=== PATIENT | female | born 1975 | race Caucasian/White ===

== ENCOUNTER 2018-03-27 09:33 | Inpatient (IN) | payer OTHER ==
--- NOTE | 2018-03-27 12:33 | History and Physical Report ---
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 She denies fever or chills, no abdominal pain no vaginal bleeding and no contractions. 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 denies: smoking - Obstetrical History Expected Date of Delivery: 08/14/18 Actual Gestation: 20 Week(s) 0 Day(s) Review of Systems Constitutional: no fever, no chills Cardiovascular: no chest pain, no orthopnea, no syncope Respiratory: no cough, no cough with sputum, no shortness of breath, no dyspnea on exertion Gastrointestinal: no abdominal pain, no nausea Genitourinary: no vaginal bleeding, no vaginal discharge, no contractions - Physical Exam Abdomen: Positive: normal appearance, soft. Negative: distention, tenderness, guarding, rigidity Uterus: Negative: tender Adnexa: both: normal Results All other labs normal. Assessment and Plan A: 42-year-old at 20 weeks with IUFD -Previous 2 -No vaginal bleeding and stable P: -Unfortunately, no nursing staff available on labor and delivery at this time -Plan is to obtain DIC labs. If within normal, we'll discharge patient and she' ll return tomorrow for induction -Discussed warning signs and symptoms with patient to return to the hospital KATERYNA - Patient Problems (1) 20 weeks gestation of Current Visit: Yes Status: Acute (2) IUFD (intrauterine ) Current Visit: Yes Status: Acute
[2018-03-27 12:41] VITALS: BP 109/66
[2018-03-27 13:34] LABS: Basophils % (Auto) 0.6 % (0.0-1.8); Eosinophils # (Auto) 0.2 K/mm3 (0.0-0.4); Eosinophils % (Auto) 2.3 % (0.0-4.3); Hematocrit 36.5 % (30.3-42.9); Hemoglobin 12.8 gm/dl (10.1-14.3); Lymphocytes # (Auto) 1.3 K/mm3 (1.2-5.4); Lymphocytes % (Auto) 19.1 % (13.4-35.0); Mean Corpuscular HGB Conc 35 % (30-34); Mean Corpuscular Hemoglobin 33 pg (28-32); Mean Corpuscular Volume 93 fl (79-97); Monocytes # (Auto) 0.4 K/mm3 (0.0-0.8); Monocytes % (Auto) 6.4 % (0.0-7.3); Platelet Count 289 K/mm3 (140-440); Red Blood Count 3.93 M/mm3 (3.65-5.03); Red Cell Distribution Width 13.9 % (13.2-15.2)
[2018-03-27 13:45] LABS: INR 0.99 (0.87-1.13)
[2018-03-27 13:46] LABS: Partial Thromboplastin Time 27.2 Sec. (24.2-36.6)
== END 2018-03-27 14:27 | disposition home or self-care (01) | DRG 782 ==
LOC: LD 09:33
PROVIDERS: ADMIT Obstetrics & Gynecology; ATTEND Obstetrics & Gynecology
DX: O36.4XX0 Maternal care for intrauterine death, not applicable or unspecified (principal); Z3A.20 20 weeks gestation of pregnancy; O34.219 Maternal care for unspecified type scar from previous cesarean delivery
CPT/HCPCS: 36415; 85025; 85379; 85384; 85610; 85730; 86850; 86900; 86901

== ENCOUNTER 2018-03-28 09:25 | Inpatient (IN) | payer OTHER ==
[2018-03-28] MEDS ORDERED: XYLOCAINE 2% INFILTRATI ONE (11:59)
[2018-03-28] MEDS ORDERED: MINERAL OIL PO PRN (11:59)
[2018-03-28] MEDS ORDERED: LACTATED RINGERS 1,000 ML IV SCH (12:00)
[2018-03-28] MEDS ORDERED: PITOCin/NS 20 UNIT/1000ML DRIP 20 UNITS/1,000 ML BAG IV SCH (12:00)
--- NOTE | 2018-03-28 12:05 | History and Physical Report ---
History of Present Illness Date of admission: 03/28/18 09:25 Chief complaint: demise History of present illness: 42yo at 20wks presents to L&D due to demise found on ultrasound in clinic at [facility]. Per verbal report from nurse practitioner, Rose, the ultrasound shows cystic hygroma, generalized edema and demise. The triple screen was positive for Trisomy 18 and Trisomy 21. Today the patient reports no movement and no vaginal bleeding. She does complain of abdominal pain. She has a history of 2 previous full term sections. She had third trimester bleeding in one but no blood transfusions. Past History - Obstetrical History : 5 Medications and Allergies Allergies Allergy/AdvReac Type Severity Reaction Status Date / Time No Known Allergies Allergy Unverified 03/27/18 13:14 Active Meds: Active Medications Ephedrine Sulfate (Ephedrine Sulfate) 10 mg IV Q2M PRN PRN Reason: Hypotension Lactated Ringer's (Lactated Ringers) 1,000 mls @ 125 mls/hr IV DIRECT LARISA Oxytocin/Sodium Chloride (Pitocin/Ns 20 Unit/1000ml Drip) 20 units in 1,000 mls @ 125 mls/hr IV DIRECT LARISA Lidocaine (Xylocaine 2%) 20 ml INFILTRATI ONCE ONE Stop: 03/28/18 12:00 Mineral Oil (Mineral Oil) 30 ml PO QHS PRN PRN Reason: Constipation - Physical Exam Abdomen: Positive: other (vertical scar - well healed) Uterus: Positive: other (fundal height 20 cm) - Obstetrical Cervical Dilatation: 0 Results Result Diagrams: 03/28/18 13:03 All other labs normal. Assessment and Plan - Patient Problems (1) Advanced maternal age in Current Visit: Yes Status: Acute (2) Triple screen positive Current Visit: Yes Status: Acute (3) 20 weeks gestation of Current Visit: No Status: Acute (4) IUFD (intrauterine ) Current Visit: No Status: Acute Plan to address problem: 1. Order ultrasound to confirm findings in clinic ( demise, cystic hygroma) 2. Order TORCH labs not done in clinic. 3. Once demise confirmed, begin induction with Misoprostol 200mcg Q3hrs until delivery. 4. Routine labs, pain medication 5. Anticipate spontaneous vaginal delivery.
[2018-03-28 14:01] LABS: Hematocrit 36.1 % (30.3-42.9); Hemoglobin 12.5 gm/dl (10.1-14.3); Mean Corpuscular HGB Conc 35 % (30-34); Mean Corpuscular Hemoglobin 32 pg (28-32); Mean Corpuscular Volume 93 fl (79-97); Platelet Count 292 K/mm3 (140-440); Red Cell Distribution Width 13.6 % (13.2-15.2)
--- NOTE | 2018-03-28 15:29 | Ultrasound Report ---
OB ULTRASOUND GREATER THAN 14 WEEKS INDICATION: Evaluate for demise, cystic hygroma, anomalies. COMPARISON: None similar at this institution. TECHNIQUE: Transabdominal grayscale ultrasound with Doppler interrogation. Few translabial images also obtained to evaluate the cervix. Gestation: [place] Position: Breech Amniotic Fluid: WNL < 24 weeks, subjective Placenta: Posterior Placental Grade: Zero Heart Rate: Zero BPM; demise Cervical length: Difficult to accurately measure, though translabially appears incompetent with approximately 1.2 cm AP fluid-filled widening near the internal os. It is too early for a anatomical survey SPINE VISUALIZED: Longitudinal Transverse Limited spine due to position BPD: 40 cm = 18 w zero d HC: 13.3 cm = 16 w 6 d AC: 20.3 cm = 24 w 6 d FL: 2.4 cm = 17 w 2 d HC/AC Ratio: 0.7 Cephalic Index: 89 Estimated Weight: 385 grams LMP: 11/07/2017 Clinical age = 20 w 1 d EDC: 08/14/2018 US Gest. Age = 19 w 2 d EDC: 08/20/2018 NOTE: Diffuse extensive skin/soft tissue thickening/edema/hydrops noted with ascites and intrathoracic fluid also identified. Extensive thickening behind the neck may measure 2.4 cm as on image 11. organs not clearly discernible. Bowel may be echogenic. CONCLUSION: Intrauterine demise with ultrasound estimated age of 19 weeks and 2 days, currently in breech lie with hydrops, as detailed above. Please correlate. Thank you for the opportunity to participate in this patient's care.
[2018-03-28] MEDS ORDERED: STADOL IV PRN (16:09)
[2018-03-28] MEDS ORDERED: SUBLIMAZE IV PRN (16:10)
[2018-03-28] MEDS: CYTOTEC PO SCH ×2 (16:54→19:47)
--- NOTE | 2018-03-28 23:07 | Procedure Note ---
OB Delivery Note - Delivery Date of Delivery: 03/28/18 Surgeon: YIMI OLGUIN - Vaginal Delivery presentation: breech Intrapartum events: labor-<37 weeks, other(please specify) ( demise ) Delivery induction: cervidil Delivery monitor: external uterine Route of delivery: Delivery placenta: adherent, uterine exploration (in the OR under anesthesia) Episiotomy: none Delivery laceration: none Anesthesia: none - A at 1 minute: 0 at 5 minutes: 0 Gender: Female (459gms)
[2018-03-29] MEDS ORDERED: BICITRA PO ONE (01:09)
[2018-03-29] MEDS ORDERED: PEPCID IV ONE (01:10)
[2018-03-29] MEDS ORDERED: REGLAN IV ONE (01:11)
[2018-03-29] MEDS ORDERED: VERSED ONE (01:20)
[2018-03-29] MEDS ORDERED: DIPRIVAN 10 MG/ML IV ONE (01:20)
[2018-03-29] MEDS ORDERED: ANCEF/STERILE WATER 2 GM/20 ML 2 GM/20 ML SYRINGE IV ONE (01:33)
[2018-03-29] MEDS ORDERED: NEO SYNEPHRINE/NS Syringe(OR USE) IV ONE (02:11)
--- NOTE | 2018-03-29 02:13 | Operative Report ---
Operative Report Operative Report: Date of procedure: 04/28/2018 Pre-operative diagnosis: 1. Status post normal spontaneous vaginal delivery 2. Retained placenta with hemorrhage Post-operative diagnosis: Same Procedure name(s): Manual extraction of placenta under anesthesia Surgeon: Aki Lynn MD Change Attendant: None Anesthesia: Gen. mask by Dr. Schmitt EBL: 200 mL Findings: A 20 week size uterus with placenta removed intact and sent to pathology Procedure: After the patient was correctly identified, she was prepped and draped in usual sterile fashion and placed in dorsal lithotomy position. First the bladder was emptied using straight catheter, then bimanual extraction of placenta was performed, and the placenta was removed intact and sent to pathology. Gentle curettage was performed and all the products of conception was removed. The procedure was considered complete. The patient tolerated the procedure well and was transported to recovery in stable condition.
[2018-03-29] MEDS ORDERED: TYLENOL PO PRN (02:16)
[2018-03-29] MEDS ORDERED: NORCO 5/325 PO PRN (02:16)
[2018-03-29] MEDS ORDERED: TUCKS PAD TP PRN (02:16)
[2018-03-29] MEDS ORDERED: LANSINOH TP PRN (02:16)
[2018-03-29] MEDS ORDERED: MILK OF MAGNESIA PO PRN (02:16)
[2018-03-29] MEDS ORDERED: ZOFRAN IV PRN (02:16)
[2018-03-29] MEDS ORDERED: PHENERGAN PO PRN (02:16)
[2018-03-29] MEDS ORDERED: DULCOLAX PR PRN (02:16)
[2018-03-29] MEDS ORDERED: BENADRYL PO PRN (02:16)
[2018-03-29] MEDS ORDERED: PHENERGAN PR PRN (02:16)
--- NOTE | 2018-03-29 02:24 | Anesthesia Consultation ---
Anesthesia Consult and Med Hx Date of service: 03/29/18 - Airway Anesthetic Teeth Evaluation: Good ROM Head & Neck: Adequate Mental/Hyoid Distance: Adequate Mallampati Class: Class III Intubation Access Assessment: Possibly Difficult - Pulmonary Exam CTA: Yes - Cardiac Exam Cardiac Exam: RRR - Pre-Operative Health Status ASA Pre-Surgery Classification: ASA1, Emergency Proposed Anesthetic Plan: MAC - Pulmonary Hx Smoking: No Hx Asthma: No COPD: No Hx Pneumonia: No - Cardiovascular System Hx Hypertension: No Hx Heart Attack/AMI: No - Central Nervous System Hx Seizures: No CVA: No - Endocrine Hx Renal Disease: No Hx Liver Disease: No Hx Insulin Dependent Diabetes: No Hx Thyroid Disease: No - Additional Comments Anesthesia Medical History Comments: 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 NPO >8hrs. No hx anesthetic complications.
--- NOTE | 2018-03-29 02:24 | Anesthesia Day of Surgery ---
Anesthesia Day of Surgery - Day of Surgery Patient Examined: Yes Patient H&P Reviewed: Yes Patient is NPO: Yes
[2018-03-29] MEDS ORDERED: SODIUM CHLORIDE FLUSH SYRINGE 10 ML IV NR (03:00)
[2018-03-29] MEDS ORDERED: PITOCin/NS 20 UNIT/1000ML DRIP 20 UNITS/1,000 ML BAG IV SCH (03:00)
[2018-03-29] MEDS: VIBRAMYCIN PO SCH ×2 (03:56→16:20)
[2018-03-29] MEDS: MOTRIN PO SCH ×3 (03:56→16:20)
[2018-03-29] MEDS: METHERGINE PO SCH ×2 (06:40→16:19)
[2018-03-29 09:34] VITALS: BP 103/62
[2018-03-29] MEDS ORDERED: COLACE PO SCH (10:00)
--- NOTE | 2018-03-29 10:41 | Progress Note ---
Assessment and Plan A: s/p of 20 week IUFD s/p Manual placental extraction P: Follow routine orders d/c home today RTO in 6 weeks Subjective - Subjective Date of service: 03/29/18 Patient reports: appetite normal, voiding normally, pain well controlled, flatus , ambulating normally [place]: Objective - Vital Signs Latest vital signs: Vital Signs Temp Pulse Resp BP BP Pulse Ox 03/29/18 08:35 98.6 F 03/29/18 08:33 64 103/62 95 03/29/18 03:25 97.9 F 71 18 102/62 98 03/29/18 02:57 74 15 98/65 100 03/29/18 02:42 77 18 101/57 100 03/29/18 02:27 60 14 85/50 96 03/29/18 02:12 69 15 86/31 97 03/29/18 01:30 71 108/63 03/29/18 01:15 71 97/60 03/29/18 01:02 18 03/29/18 00:55 69 108/60 03/29/18 00:46 75 88/52 03/29/18 00:39 67 105/49 03/29/18 00:01 68 73/43 03/28/18 23:46 72 75/41 03/28/18 23:32 81 93/48 03/28/18 23:16 87 99/60 03/28/18 22:50 18 03/28/18 22:20 18 03/28/18 19:50 97.5 F L 70 18 107/68 03/28/18 19:42 68 107/68 Intake and Output 03/28/18 03/29/18 03/29/18 22:59 06:59 14:59 Intake Total 400 Balance 400 Intake: IV 400 - Exam Breasts: Present: normal Cardiovascular: Present: Regular rate Lungs: Present: Clear to auscultation, Normal air movement Abdomen: Present: normal appearance, soft, normal bowel sounds Uterus: Present: normal, firm Extremities: Present: normal - Labs Labs: Abnormal lab results 03/28/18 Range/Units 13:03 MCHC 35 H (30-34) %
--- NOTE | 2018-03-29 10:43 | Discharge Summary ---
Providers - Providers Date of Admission: 03/28/18 09:25 Date of discharge: 03/29/18 Attending physician: SEB BAEZA Primary care physician: DOMINIQUE GERARDO MD Hospitalization Reason for admission: IUFD Delivery: Procedure: other (manual placenta extraction) Episiotomy: none Laceration: none Other procedures: none complications: none Discharge diagnosis: intrapartum demise Condition at discharge: Good Disposition: DC-01 TO HOME OR SELFCARE Plan - Provider Discharge Summary Activity: routine, no sex for 6 weeks, no heavy lifting 4 weeks, no strenuous exercise Diet: routine Instructions: routine Additional instructions: [] Smoking cessation referral if applicable(refer to patient education folder for contact #) [] Refer to [facility]'s [facility] Booklet Call your doctor immediately for: * Fever > 100.5 * Heavy vaginal bleeding ( >1 pad per hour) * Severe persistent headache * Shortness of breath * Reddened, hot, painful area to leg or breast * Drainage or odor from incision. * Keep incision clean and dry at all times and follow doctor's instructions regarding bathing/showering - Follow up plan Follow up: SEB BAEZA [Staff Physician] - 6 Weeks
[2018-03-29 14:51] LABS: Hematocrit 25.2 % (30.3-42.9)
[2018-03-30] MEDS ORDERED: BOOSTRIX IM ONE (06:00)
[2018-03-30] MEDS ORDERED: M-M-R II VACCINE SUB-Q ONE (06:00)
== END 2018-03-29 18:30 | disposition home or self-care (01) | DRG 767 ==
LOC: LD 09:25 → OB 03-29 03:35
PROVIDERS: ADMIT Obstetrics & Gynecology; ATTEND Obstetrics & Gynecology
PROC: 10E0XZZ Delivery of Products of Conception, External Approach (ICD-10-PCS; principal; 2018-03-28)
PROC: 3E0P7VZ Introduction of Hormone into Female Reproductive, Via Natural or Artificial Opening (ICD-10-PCS; 2018-03-28)
PROC: 10D17Z9 Manual Extraction of Products of Conception, Retained, Via Natural or Artificial Opening (ICD-10-PCS; 2018-03-29)
DX: O36.4XX0 Maternal care for intrauterine death, not applicable or unspecified (principal); O60.12X0 Preterm labor second trimester with preterm delivery second trimester, not applicable or unspecified; O72.2 Delayed and secondary postpartum hemorrhage; O32.1XX0 Maternal care for breech presentation, not applicable or unspecified; Z37.1 Single stillbirth; Z3A.20 20 weeks gestation of pregnancy; D18.1 Lymphangioma, any site
CPT/HCPCS: 36415; 76805; 85014; 85018; 85027; 86777; 86778; 87497; 88305; J0595; J0690; J2250; J2370; J2405; J2590; J2704; J2765; J3010; J7120